=== PATIENT | female | born 1980 | race African-American/Black ===

== ENCOUNTER 2019-02-27 02:50 | Inpatient (IN) | payer MEDICAID ==
[~2019-02-27] VITALS: Ht 165.1 cm; Wt 71.7 kg
[2019-02-27] MEDS ORDERED: PNV1TABL50 PO (03:42)
[2019-02-27] MEDS ORDERED: CARBOPROST TROMETHAMINE 250 MCG/ML AMPUL IM PRN (03:45)
[2019-02-27] MEDS ORDERED: NALOXONE HCL 0.4 MG/ML 1ML VIAL IM PRN (03:45)
[2019-02-27] MEDS ORDERED: BUTORPHANOL TARTRATE 2 MG/ML VIAL IV PRN (03:45)
[2019-02-27] MEDS ORDERED: METHYLERGONOVINE MALEATE 0.2 MG/ML IM PRN ×2 (03:45→07:15)
[2019-02-27] MEDS ORDERED: LIDOCAINE HCL 1% 20ML VIAL (Pyxis) INJ INFIL SCH (03:45)
[2019-02-27] MEDS ORDERED: PENICILLIN G POTASSIUM 5 MMU in DEXT 5% WATER 100 ML IV NR (04:00)
[2019-02-27] MEDS ORDERED: LACTATED RINGERS 1,000 ML IV SCH (04:30)
[2019-02-27] MEDS: DEXT 5%/LR + PITOCIN 20UNITS/L 1,000 ML IV SCH ×2 (04:48→06:24)
[2019-02-27 05:35] LABS: BASOPHILS % 0.5 % (0.0-2.0); CLARITY URINE CLEAR (CLEAR); COLOR URINE YELLOW (YELLOW); EOSINOPHILS % 0.3 % (0.0-5.0); HEMATOCRIT. 33.8 % (36.0-48.0); HEMOGLOBIN. 11.2 g/dL (12.0-16.0); KETONES URINE NEGATIVE (NEGATIVE); LEUKOCYTE ESTERASE URINE NEGATIVE (NEGATIVE); LYMPHOCYTES % 13.9 % (20.0-50.0); MEAN CORPUSCULAR HEMOGLOBIN 24.4 pg (28.0-32.0); MEAN CORPUSCULAR VOLUME 73.8 fL (81.0-99.0); MEAN PLATELET VOLUME 10.2 fl (7.4-10.4); MONOCYTES % 11.7 % (2.0-8.0); NEUTROPHILS % 73.6 % (40.0-76.0); NITRITE URINE NEGATIVE (NEGATIVE); OCCULT BLOOD URINE 2+ (NEGATIVE); PLATELET 174 x1000/uL (130-400); PROTEIN URINE NEGATIVE (NEGATIVE); RED BLOOD CELL COUNT 4.57 mill/uL (4.2-5.4); RED CELL DISTRIBUTION WIDTH 15.7 % (11.6-14.6); SPECIFIC GRAVITY URINE 1.006 (1.005-1.030)
[2019-02-27 05:38] LABS: PARTIAL THROMBOPLASTIN TIME 28.1 sec (23.4-31.0)
[2019-02-27 05:54] LABS: *AMPHETAMINES SCREEN URINE NEGATIVE (NEGATIVE); *BARBITURATES SCREEN URINE NEGATIVE (NEGATIVE); *BENZODIAZEPINES SCREEN URINE NEGATIVE (NEGATIVE)
[2019-02-27 05:56] LABS: *COCAINE SCREEN URINE NEGATIVE (NEGATIVE); CANNABINOID URINE SCREEN NEGATIVE (NEGATIVE); METHADONE URINE SCREEN NEGATIVE (NEGATIVE); OPIATES URINE SCREEN NEGATIVE (NEGATIVE); PHENCYCLIDINE URINE SCREEN NEGATIVE (NEGATIVE)
[2019-02-27 06:02] LABS: HEPATITIS B SURFACE ANTIGEN NEGATIVE
[2019-02-27] MEDS ORDERED: RHO(D) IMMUNE GLOBULIN 300 MCG/SYR IM PRN (07:15)
[2019-02-27] MEDS ORDERED: IBUPROFEN 400MG TABLET PO PRN (07:15)
[2019-02-27] MEDS ORDERED: LANOLIN OINT 7GM TUBE TOP PRN (07:15)
[2019-02-27 07:27] LABS: INR < 0.9; PROTHROMBIN TIME < 9.0 sec (9.6-11.0)
[2019-02-27] MEDS ORDERED: DEXT 5%/LR + PITOCIN 20UNITS/L 1,000 ML IV SCH (07:30)
[2019-02-27] MEDS ORDERED: PENICILLIN G POTASSIUM 2.5 MMU in DEXTROSE 5% WATER 50 ML IV SCH (08:00)
[2019-02-27 08:30] VITALS: BP 135/91
[2019-02-27 09:00] VITALS: BP 115/87
[2019-02-27 10:00] VITALS: BP 132/84
[2019-02-27] MEDS: PRENATAL VIT/FE FUMARATE/FA TABLET PO SCH (11:51)
[2019-02-27] MEDS: IBUPROFEN 800MG TABLET PO PRN ×2 (11:52→18:35)
[2019-02-27 15:38] VITALS: BP 126/81
[2019-02-27 19:25] VITALS: BP 121/79
[2019-02-27 23:50] VITALS: BP 108/65
[2019-02-28 07:11] LABS: BASOPHILS % 0.6 % (0.0-2.0); EOSINOPHILS % 0.8 % (0.0-5.0); HEMATOCRIT. 26.9 % (36.0-48.0); LYMPHOCYTES % 10.8 % (20.0-50.0); MEAN CORPUSCULAR HEMOGLOBIN 24.5 pg (28.0-32.0); MEAN PLATELET VOLUME 9.8 fl (7.4-10.4); MONOCYTES % 10.1 % (2.0-8.0); NEUTROPHILS % 77.7 % (40.0-76.0); PLATELET 175 x1000/uL (130-400); RED BLOOD CELL COUNT 3.69 mill/uL (4.2-5.4); RED CELL DISTRIBUTION WIDTH 15.5 % (11.6-14.6)
[2019-02-28 09:30] VITALS: BP 121/71
[2019-02-28] MEDS: PRENATAL VIT/FE FUMARATE/FA TABLET PO SCH (10:00)
[2019-02-28] MEDS: IBUPROFEN 800MG TABLET PO PRN ×2 (10:00→17:06)
[2019-02-28] MEDS ORDERED: DIPHENHYDRAMINE 25MG CAPSULE PO SCH (10:45)
[2019-02-28 19:30] VITALS: BP 123/81
[2019-03-01] MEDS: IBUPROFEN 800MG TABLET PO PRN ×2 (00:35→06:46)
[2019-03-01 04:30] VITALS: BP 112/66
[2019-03-01 07:30] VITALS: BP 126/69
== END 2019-03-01 13:35 | disposition home or self-care (01) | DRG 560 ==
LOC: OBSVTOIN 02:50 → 8 EST LDRP 02:50 → 8EST 08:17
PROVIDERS: ADMIT Obstetrics & Gynecology; ATTEND Obstetrics & Gynecology
PROC: 10E0XZZ Delivery of Products of Conception, External Approach (ICD-10-PCS; principal; 2019-02-27)
DX: O77.0 Labor and delivery complicated by meconium in amniotic fluid (principal); D64.9 Anemia, unspecified; O99.824 Streptococcus B carrier state complicating childbirth; O99.02 Anemia complicating childbirth; O09.523 Supervision of elderly multigravida, third trimester; Z3A.38 38 weeks gestation of pregnancy; Z37.0 Single live birth; Z79.899 Other long term (current) drug therapy
CPT/HCPCS: 36415; 80305; 81003; 86592; 86703; 86762; 86850; 86900; 87340; 99281; J0595; J2540; J2590; J7060; Q0163; A4315